=== PATIENT | male | born 1935 | race Caucasian/White ===

== ENCOUNTER 2024-09-17 10:41 | Day surgery (SDC) | payer MEDICARE, BC, SELFPAY ==
[2024-09-09 12:24] VITALS: BMI 27.2
[2024-09-17] VITALS (16 sets, daily range): BP systolic 96–163; BP diastolic 69–110; BMI 25.5
[2024-09-17 13:35] LABS: ACT-LR - POC 398 Seconds (116-155)
--- NOTE | 2024-09-17 14:07 | ITS.CL.ABL ---
Audit Machine Operator - Ablation
Ablation
Procedure Report:
ELECTROPHYSIOLOGY ABLATION STUDY
�
DATE:: September 17, 2024�����������������������������REFERRING: Dr. Gabe Gallego
�
INDICATION: Persistent supraventricular tachycardia in the form of atrial fibrillation.� Drug refractory to amiodarone
�
HISTORY: See H and P.��As above
�
ANTIARRHYTHMIC DRUG: Amiodarone
�
PRE-PROCEDURE KWAME: No intracardiac thrombus on intracardiac ultrasound
�
PRESENTING RHYTHM: Atrial fibrillation
�
'TIME-OUT':��called and confirmed.
�
SEDATION/ANESTHESIA:��provided via the anesthesia department using general anesthesia (LMA).
�
INTRAVENOUS/ARTERIAL ACCESS:
Right femoral venous - 8Fr
Left femoral venous - 8 Fr, 6 Fr
Upgraded to 11 [place] short sheath after procedure and Vascade venous closure was utilized. The 7 [place] closure device on the left femoral vein failed deliver collagen so manual pressure was held for 15 minutes post procedure but the 9 [place]
closure device was intact with collagen delivered. Vascade XL device was utilized for the 16.8 [place] right femoral venous sheath access.
Ultrasound guidance for bilateral femoral vein access was utilized by me to obtain access with demonstration of normal anatomy
CHADS-VASC Score:
�
HAS-Bled Score
�
PROCEDURE:
1.��A decapolar CS catheter was placed within the CS for mapping and pacing.��This was also used as the reference catheter for the 3-D map.
�
2. The intracardiac ultrasound catheter was positioned in the RA to identify the FO for targeting of transseptal puncture, assist��in identification of the pulmonary vein ostia, monitoring pre and post ablation pulmonary vein flow velocities,
monitoring for 'bubble' formation during RF application as a sign of thermal injury,��and to monitor for pericardial effusion during mapping and ablation procedure.���Left atrial size, LV ejection fraction, and pulmonary vein flows were monitored
pre and post ablation procedure. The other valves were inspected and found to be free of significant regurgitation or stenosis.
�
3.��Half of the calculated heparin bolus was administered prior to the first transeptal puncture.��Transseptal puncture was performed to diagnose RA and LA pressure so that safety of LA mapping and ablation could be further assessed, and to access
the left atrium and pulmonary veins for mapping and ablation.��This entailed advancing an 16.8 [place] sheath with RF wire and dilator into the superior vena cava and withdrawing both (monitoring intracardiac ultrasound, fluoroscopy and tip pressure)
with the tip oriented toward the atrial septum.��The fossa ovalis was engaged (indicated by sudden displacement of the sheath tip as well as tenting of the fossa seen on intracardiac ultrasound).��Left atrial access required a pass with the
Brockenbrough needle extended.��Left atrial catheter position was confirmed by pressure monitoring (RA mean pressure 8 mm Hg and LA mean presure 14 mm Hg), LA saturation (99%),��as well as fluoroscopy.��The sheath was advanced over the dilator and
positioned in the left atrium.��This procedure was repeated for the Agilis sheath.��The remainder of the calculated heparin bolus was administered and heparin was
infused to maintain ACT at 300 -350 seconds throughout the case.
�
4.��RA pacing was performed via the proximal decapolar poles and LA pacing was performed via the distal decapolr poles.
�
5. A quadrapolar catheter was first positioned at the His position for His Bundle recording which was tagged via the 3-D Navex sytem, and then passed to the RVA for RV pacing and recording.
�
6. The multipolar catheter and the Perla wave PFA catheter was placed in each of the LIPV, LSPV, RSPV and the RIPV.��
�
7.��Next, a 3-D map was created using Navex.���A 3-D reconstructed CT image was compared to the 3-D Navex map to assist in anatomic interpretation, mapping and ablation.��The CT image and the NavX image were fused.
�
8. A total of 52 lesions were given. The pulmonary veins were addressed and all of, basket poses in the posterior wall and LA floor was addressed and flower pose with some debulking of the interatrial septum. The patient was converted to sinus
rhythm with 1 200 J synchronized biphasic shock restoring sinus rhythm. Entrance and exit block was confirmed in all 4 pulmonary veins with electrical silence and exit block from the posterior wall as well. EP study did not demonstrate any other
nonpulmonary vein triggers for atrial fibrillation or supraventricular arrhythmia with normal sinus node function and AV Wenckebach at 460 ms.
TOTAL FLOURO TIME: 12.6 minutes 126 mGy
�
TOTAL RF DURATION: 0 minutes
�
REVERSAL OF HEPARIN: 40 mg of protamine, slow IV administration
�
COMPLICATIONS:
None
Intracardiac US shows no pericardial effusion post ablation.
�
SUMMARY:��
Complex left atrial mapping and ablation.
Isolation of all 4 pulmonary veins and the left atrial posterior wall as above.
�
RECOMMENDATIONS:
1. Ambulate in 3 hours
2. Resume anticoagulation
3.��Consider discontinuation of amiodarone in 1 month
4.� Consider same-day discharge
�
Copy to: Dr. Gabe Gallego
�
[2024-09-17] MEDS: ANESTHETIC LOZENGE 1 LOZENGE PO (17:14)
--- NOTE | 2024-09-17 17:33 | W.PN.UPDATE ---
Update Note
Progress Note Update
89 yo WM s/p PVI (same day). He denies cp, sob, chester clears, EKG SR with PVC's, b/l groins c/d/i, soft. He will resume Eliquis tonight at 8pm. He will continue amiodarone and metoprolol. Activity restrictions reviewed. He will f/u Dr. Gallego in 2
mo. He is for d/c home after 7pm if groins stable and able to void.
SUMMARY:��
Complex left atrial mapping and ablation.
Isolation of all 4 pulmonary veins and the left atrial posterior wall as above.
�
RECOMMENDATIONS:
1. Ambulate in 3 hours
2. Resume anticoagulation
3.��Consider discontinuation of amiodarone in 1 month
4.� Consider same-day discharge
[2024-09-17] MEDS: PROSCAR 5 MG PO (18:45)
[2024-09-17] MEDS: PRAVACHOL 40 MG PO (21:27)
[2024-09-17] MEDS: ELIQUIS 5 MG PO (21:27)
[2024-09-17] MEDS: VITAMIN D3 (cholecalciferol) 25 MCG PO (21:27)
[2024-09-17] MEDS: LOPRESSOR 50 MG PO (21:28)
[2024-09-17] MEDS: SYMBICORT 160/4.5 MCG INHALER 2 PUFF INH (21:32)
[2024-09-17] MEDS: TIMOPTIC 0.5% OPHTHALMIC SOLUTION 1 DROP BOTH EYES (21:48)
--- NOTE | 2024-09-17 22:40 | PTCARENOTE ---
Addendum entered by Aby Serra RN 09/18/24 05:31:
04:30 post void residual 263ml
Addendum entered by Aby Serra RN 09/17/24 22:45:
22:30 Bladder scan for 434ml. Pt was able to urinate. Post residual 299ml
Original Note:
Pt admitted to room 2255. VSS, b/l groin with dsg intact. Rt groin dsg has small bloody drainage. Pt ambulates independently. Oriented to room, call butt in reach.
[2024-09-17] MEDS: TYLENOL 650 MG PO (22:50)
[2024-09-18 04:18] VITALS: BP 98/69
[2024-09-18 04:47] VITALS: BMI 25.8
[2024-09-18 05:23] LABS: Hematocrit 37.1 % (39.0-52.0); Hemoglobin 12.3 g/dL (13.0-18.0); Mean Corp Hgb Conc. 33.2 g/dL (33.0-37.0); Mean Corpuscular Hgb 30.6 pg (27.0-31.0); Mean Corpuscular Volume 92.3 fL (80.0-94.0); Mean Platelet Volume 10.8 fL (7.4-10.4); Platelet Count 162 10^3/uL (130-400); Red Blood Cell Count 4.02 10^6/uL (4.70-6.10); White Blood Cell Count 6.4 10^3/uL (4.8-10.8)
--- NOTE | 2024-09-18 05:33 | DOWNTIME ---
There was a Flooved Client Funeral Planning Counselor Downtime on 09/18/2024 from 0100 to 09/18/2024 at 0350. Downtime documentation of patient's care, including medication administrations, has been reconciled in the electronic record per guidelines. Refer to the
patient's paper chart under the miscellaneous tab to see printed paper medication records and downtime forms.
[2024-09-18 05:43] LABS: Blood Urea Nitrogen 19 mg/dl (9-20); Calcium 8.8 mg/dl (8.4-10.2); Carbon Dioxide 27 mmol/L (22-30); Chloride 104 mmol/L (98-107); Estimated Creatinine Clearance 59 ml/min; Glucose 123 mg/dl (70-99); Sodium 140 mmol/L (135-145); eGFR > 60.00
[2024-09-18 06:57] VITALS: BP 116/79
--- NOTE | 2024-09-18 07:21 | W.PN.CARDCBS ---
Today's Communication / Plan
-
Home today
Urinating
Anticoagulation
Amiodarone from 1 to 3 months
Impression / Plan
-
Impression
1. Persistent symptomatic atrial fibrillation.
2. Hypertension.
3. Hyperlipidemia.
4. 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
5. Bifascicular heart block.
6. BPH.
7. Degenerative disc disease.
8. Obstructive sleep apnea noncompliant with device.
9. BPH.
10. Allergic asthma
11. Status post PVI plus left atrial posterior wall isolation on 09/17/2024
12. Remained overnight due to failure to urinate post procedure and is now urinating
Plan:
Amiodarone x 1 to 3 months then discontinue
Oral anticoagulation for minimum of 3 months although given his stroke risk factors would continue lifelong
Repeat echocardiogram in 3 months
No changes in other medications
Safe for discharge today
Progress Note - Statistical Technician
Subjective
Date of Service: September 18, 2024
Feels well sinus rhythm
Objective
Labs:
09/18/24 04:24
09/18/24 04:24
Labs
Hgb 12.3 g/dL (13.0-18.0) L 09/18/24 04:24
Hct 37.1 % (39.0-52.0) L 09/18/24 04:24
Plt Count 162 10^3/uL (130-400) 09/18/24 04:24
Sodium 140 mmol/L (135-145) 09/18/24 04:24
Potassium 4.0 mmol/L (3.5-5.1) 09/18/24 04:24
BUN 19 mg/dl (9-20) 09/18/24 04:24
Creatinine 0.9 mg/dL (0.7-1.3) 09/18/24 04:24
Glucose 123 mg/dl (70-99) H 09/18/24 04:24
Vital Signs and I&O:
Vital Signs
Temp Pulse Resp BP Pulse Ox
98.3 F 58 20 98/69 93
09/18/24 06:58 09/18/24 05:15 09/18/24 06:58 09/18/24 04:18 09/18/24 06:58
Vital Signs
Temp Pulse Resp BP Pulse Ox
98.3 F 58 20 98/69 93
09/18/24 06:58 09/18/24 05:15 09/18/24 06:58 09/18/24 04:18 09/18/24 06:58
Intake & Output
09/16/24 09/17/24 09/18/24 09/19/24
06:59 06:59 06:59 06:59
Intake Total 2710 / 2710
Balance 2710 / 2710
Physical Exam
Physical Exam
�
����Physical Exam
�
���������������������General:��no apparent distress, not acutely ill
�
���������������������������Neck:��supple. no meningeal signs. normal psoterior pharynx
������������������������
���������������������������Heart:��s1/s2 regular rate and rhythm, no murmur. equal radial pulses.
�
��������������������������Lungs: ��no acute respiratory distress. clear bilaterally
�
����������������������Abdomen:�normal bowel sounds. not tender. no CVAT
�
��������������������������Neuro:��alert and oriented. no focal neurological deficits
�
������������������������������Skin: ��no rash
�
�����������������������Psychiatric:�well kept. interactive and cooperative
�
�����������������������Extremities:��no edema. no calf tenderness. negative homans. good distal pulses
�
�
�
��
�
[2024-09-18] MEDS: SYMBICORT 160/4.5 MCG INHALER INH (07:53)
[2024-09-18] MEDS: PROSCAR 5 MG PO (08:15)
[2024-09-18] MEDS: ELIQUIS 5 MG PO (08:15)
[2024-09-18] MEDS: LASIX 20 MG PO (08:15)
[2024-09-18] MEDS: LOPRESSOR 50 MG PO (08:15)
[2024-09-18] MEDS: PACERONE 200 MG PO (08:15)
--- NOTE | 2024-09-18 08:44 | PTCARENOTE ---
pt received at change of shift. Pt AAOX3, ambulating in bathroom without difficulty. pt voiding in bathroom. bilateral groin sites CDI. SR on telemetry heart rate in 60 occasional pvcs. pulses palpable. pt on room air, lung sounds clear. active
bowel sounds. see worklist for full nursing assessment. pt to be discharged this morning. pt updated on plan of care.
[2024-09-18 09:11] VITALS: BP 107/68
--- NOTE | 2024-09-18 15:27 | CM ---
Chart reviewed. Patient is independent of ADLS, lives alone in a 1 STH, 3 LOR, 0 DME. Plan is for the patient to return home.
== END 2024-09-18 10:05 | disposition home or self-care (01) ==
LOC: CATH 10:41
PROVIDERS: Nurse Practitioner Adult Health; ATTENDING PHYSICIAN Internal Medicine Cardiovascular Disease; FAMILY PHYSICIAN Family Medicine; OTHER PHYSICIAN Internal Medicine Cardiovascular Disease
DX: I48.19 Other persistent atrial fibrillation (principal); I47.10 Supraventricular tachycardia, unspecified; I11.0 Hypertensive heart disease with heart failure; I50.22 Chronic systolic (congestive) heart failure; I42.9 Cardiomyopathy, unspecified; E78.5 Hyperlipidemia, unspecified; I45.2 Bifascicular block; N40.0 Benign prostatic hyperplasia without lower urinary tract symptoms; G47.33 Obstructive sleep apnea (adult) (pediatric); Z79.01 Long term (current) use of anticoagulants
CPT/HCPCS: C1732; C1894; C1730; C1769; C1892; C1759; 80048; 83735; 85027; 85347; 86900; 86901; 93005; 93656; 93657; 94640; C1733; C1760; C1766